=== PATIENT | female | born 1940 | race Caucasian/White ===

== ENCOUNTER 2021-09-22 09:18 | Inpatient (IN) ==
[2021-09-22 09:59] LABS: Basophils % 0.3 %; Eosinophils % 0.2 %; Hematocrit 39.4 % (35.3-44.9); Hemoglobin 12.6 g/dL (11.5-15.4); Immature Granulocytes % 0.5 % (0-4); Lymphocytes # 0.7 K/mcL (0.6-4.6); Lymphocytes % 6.3 %; Mean Corpuscular Hemoglobin 29.2 pg (28.0-33.3); Mean Corpuscular Volume 91.4 fL (83.0-100.0); Mean Platelet Volume 10.2 fL (9.4-12.4); Monocytes # 0.6 K/mcL (0.0-1.3); Monocytes % 5.3 %; Neutrophils # 10.1 K/mcL (1.6-8.9); Platelet Count 266 K/mcL (140-400); Red Blood Count 4.31 M/mcL (3.82-4.97); Red Cell Distribution Width 13.8 % (11.5-14.5); Segmented Neutrophils % 87.4 %; White Blood Count 11.6 K/mcL (4.3-11.1)
[2021-09-22 10:20] LABS: BUN/Creatinine Ratio 21 (6-26); Blood Urea Nitrogen 22 mg/dL (8-23); Calcium 9.3 mg/dL (8.6-10.3); Carbon Dioxide 21 mEq/L (23-29); Chloride 104 mEq/L (98-107); Glucose 148 mg/dL (70-105); Osmolality,Calculated 288 (280-300); Potassium 3.8 mEq/L (3.5-5.1); Sodium 136 mEq/L (136-145); eGFR For African Americans > 60 (> 60); eGFR For Non-African Americans 51 (> 60)
[2021-09-22 10:21] LABS: Troponin I 0.03 ng/mL (< 0.04)
[2021-09-22] MEDS ORDERED: *HR* Heparin 5,000 UNIT/ML VIAL IVP ONE (10:44)
[2021-09-22] MEDS ORDERED: *HR* Heparin 5,000 UNIT/ML VIAL IVP PRN ×2 (10:44)
[2021-09-22 10:45] LABS: INR 1.3; Prothrombin Time 14.5 Seconds (9.4-12.1)
[2021-09-22] MEDS ORDERED: levoFLOXacin 750 MG/150 ML 750 MG/150 ML BAG IVPB ONE (10:45)
[2021-09-22] MEDS ORDERED: Isovue-370 500 ML BOTTLE IVP ONE (11:01)
[2021-09-22] MEDS: DilTIAZem 50 MG/50 ML IV.SOLN IVC SCH ×3 (11:45→22:56)
[2021-09-22] MEDS: Heparin 25,000UNIT/250ML 1/2NS 25,000 UNIT/250 ML IV.SOLN IVC SCH (12:05)
[2021-09-22 12:58] LABS: Influenza A PCR Negative (Negative); Influenza B PCR Negative (Negative); Resp. Syncytial Virus PCR Negative (Negative)
[2021-09-22 12:59] LABS: SARS-CoV-2 by PCR (In House) Negative (Negative)
[2021-09-22] MEDS ORDERED: Ondansetron 4 MG/2 ML VIAL IVP PRN (15:19)
[2021-09-22] MEDS ORDERED: Mag Hydrox/Al Hydrox/Simeth 30 ML UDC PO PRN (15:19)
[2021-09-22] MEDS ORDERED: Naloxone 0.4 MG/ML INJ IVP PRN (15:19)
[2021-09-22] MEDS ORDERED: Acetaminophen 325 MG TABLET PO PRN (15:19)
[2021-09-22] MEDS ORDERED: Melatonin 3 MG TABLET PO PRN (15:19)
[2021-09-22] MEDS ORDERED: *HR* OxyCODONE Immed Rel 5 MG TABLET PO PRN (15:19)
[2021-09-22] MEDS ORDERED: Perflutren Lipid Microsphere 1.3 ML in 0.9 % Sodium Chloride 8.7 ML IVP PRN (15:21)
[2021-09-22] MEDS ORDERED: Furosemide 20 MG/2 ML VIAL IVP SCH (15:45)
[2021-09-22 15:53] LABS: Lactate Dehydrogenase 234 Units/L (140-271); Total Protein 7.1 g/dL (6.4-8.9)
[2021-09-22] MEDS ORDERED: Levalbuterol 1 PUFF INHALER IH PRN (21:47)
[2021-09-22] MEDS ORDERED: Levalbuterol Neb 1.25 MG/3 ML IH PRN (23:54)
[2021-09-23 04:04] LABS: Basophils # 0.1 K/mcL (0.0-0.2); Basophils % 0.4 %; Eosinophils % 0.1 %; Hematocrit 34.9 % (35.3-44.9); Hemoglobin 11.2 g/dL (11.5-15.4); Immature Granulocytes % 0.4 % (0-4); Lymphocytes # 0.9 K/mcL (0.6-4.6); Lymphocytes % 7.3 %; Mean Corpuscular HGB Conc 32.1 g/dL (31.6-35.5); Mean Corpuscular Hemoglobin 29.3 pg (28.0-33.3); Mean Corpuscular Volume 91.4 fL (83.0-100.0); Mean Platelet Volume 10.4 fL (9.4-12.4); Monocytes # 0.9 K/mcL (0.0-1.3); Monocytes % 7.3 %; Neutrophils # 10.9 K/mcL (1.6-8.9); Platelet Count 250 K/mcL (140-400); Red Blood Count 3.82 M/mcL (3.82-4.97); Red Cell Distribution Width 13.7 % (11.5-14.5); Segmented Neutrophils % 84.5 %; White Blood Count 12.9 K/mcL (4.3-11.1)
[2021-09-23 04:23] LABS: BUN/Creatinine Ratio 21 (6-26); Blood Urea Nitrogen 21 mg/dL (8-23); Calcium 9.2 mg/dL (8.6-10.3); Carbon Dioxide 21 mEq/L (23-29); Chloride 103 mEq/L (98-107); Glucose 106 mg/dL (70-105); Magnesium 1.8 mg/dL (1.6-2.6); Osmolality,Calculated 287 (280-300); Sodium 137 mEq/L (136-145); eGFR For African Americans > 60 (> 60); eGFR For Non-African Americans 52 (> 60)
[2021-09-23] MEDS ORDERED: Furosemide 20 MG/2 ML VIAL IVP SCH (09:00)
[2021-09-23] MEDS: levoFLOXacin 750 MG/150 ML 750 MG/150 ML BAG IVPB SCH (10:09)
[2021-09-23] MEDS: DilTIAZem 50 MG/50 ML IV.SOLN IVC SCH (10:48)
[2021-09-23 11:20] LABS: Adenovirus Not Detected (Not Detect); Bordetella Pertussis Not Detected (Not Detect); Chlamydophila pneumoniae Not Detected (Not Detect); Coronavirus 229E Not Detected (Not Detect); Coronavirus HKU1 Not Detected (Not Detect); Coronavirus NL63 Not Detected (Not Detect); Coronavirus OC43 Not Detected (Not Detect); Human Metapneumovirus Not Detected (Not Detect); Human Rhinovirus/Enterovirus Not Detected (Not Detect); Influenza A Subtype 2009 H1 Not Detected (Not Detect); Influenza B Not Detected (Not Detect); Mycoplasma pneumoniae Not Detected (Not Detect); Parainfluenza Virus 1 Not Detected (Not Detect); Parainfluenza Virus 2 Not Detected (Not Detect); Parainfluenza Virus 3 Not Detected (Not Detect); Parainfluenza Virus 4 Not Detected (Not Detect); Respiratory Syncytial Virus Not Detected (Not Detect); SARS-CoV-2 Not Detected (Not Detect)
[2021-09-23 15:42] LABS: RBC,Pleural Fluid < 2000 RBC/mcL
[2021-09-23 15:55] LABS: Glucose,Pleural Fluid 110 mg/dL (No Ref Range); LDH,Pleural Fluid 72 Units/L (No Ref Range); Total Protein,Pleural Fluid < 2.0 g/dL
[2021-09-23] MEDS: Aspirin Enteric Coated 81 MG Tablet PO SCH (17:28)
[2021-09-23] MEDS: Furosemide 20 MG/2 ML VIAL IVP SCH (17:29)
[2021-09-23 17:47] LABS: Appearance of Pleural Fl Clear (Clear)
[2021-09-23 17:50] LABS: Basophils,Pleural Fluid 0 %; Eosinophils,Pleural Fluid 0 %
[2021-09-23 17:53] LABS: Thyroid Stimulating Hormone 3.468 mcIU/mL (0.340-5.600)
[2021-09-24] MEDS: Heparin 25,000UNIT/250ML 1/2NS 25,000 UNIT/250 ML IV.SOLN IVC SCH ×3 (01:49→22:34)
[2021-09-24] MEDS: DilTIAZem 50 MG/50 ML IV.SOLN IVC SCH ×2 (07:20→14:07)
[2021-09-24] MEDS: amLODIPine 5 MG TABLET PO SCH (09:27)
[2021-09-24] MEDS: Furosemide 20 MG/2 ML VIAL IVP SCH ×2 (09:27→17:22)
[2021-09-24] MEDS: Aspirin Enteric Coated 81 MG Tablet PO SCH (09:27)
[2021-09-24 09:28] LABS: Basophils % 0.3 %; Eosinophils % 0.2 %; Hematocrit 38.3 % (35.3-44.9); Hemoglobin 12.2 g/dL (11.5-15.4); Immature Granulocytes % 0.3 % (0-4); Lymphocytes # 1.2 K/mcL (0.6-4.6); Lymphocytes % 9.1 %; Mean Corpuscular HGB Conc 31.9 g/dL (31.6-35.5); Mean Corpuscular Volume 91.2 fL (83.0-100.0); Monocytes # 1.1 K/mcL (0.0-1.3); Monocytes % 8.4 %; Neutrophils # 10.4 K/mcL (1.6-8.9); Platelet Count 275 K/mcL (140-400); Red Cell Distribution Width 13.5 % (11.5-14.5); Segmented Neutrophils % 81.7 %; White Blood Count 12.8 K/mcL (4.3-11.1)
[2021-09-24 09:36] LABS: INR 1.5
[2021-09-24] MEDS: MethylPREDNISolone 40 MG/ML VIAL IVP SCH ×2 (09:38→17:22)
[2021-09-24 09:48] LABS: Calcium 9.2 mg/dL (8.6-10.3); Potassium 3.5 mEq/L (3.5-5.1)
[2021-09-24] MEDS ORDERED: *HR* Warfarin 2.5 MG TABLET PO ONE (18:00)
[2021-09-24] MEDS ORDERED: Warfarin perPT PO PRN (18:00)
[2021-09-25] MEDS: MethylPREDNISolone 40 MG/ML VIAL IVP SCH ×2 (05:13→19:01)
[2021-09-25 05:48] LABS: Hematocrit 34.6 % (35.3-44.9); Hemoglobin 11.2 g/dL (11.5-15.4); Mean Corpuscular HGB Conc 32.4 g/dL (31.6-35.5); Mean Corpuscular Hemoglobin 28.9 pg (28.0-33.3); Mean Corpuscular Volume 89.2 fL (83.0-100.0); Mean Platelet Volume 10.3 fL (9.4-12.4); Platelet Count 246 K/mcL (140-400); Red Blood Count 3.88 M/mcL (3.82-4.97); Red Cell Distribution Width 13.4 % (11.5-14.5); White Blood Count 12.5 K/mcL (4.3-11.1)
[2021-09-25 05:53] LABS: INR 1.4; Prothrombin Time 15.9 Seconds (9.4-12.1)
[2021-09-25 06:09] LABS: Calcium 8.8 mg/dL (8.6-10.3); Potassium 3.5 mEq/L (3.5-5.1)
[2021-09-25] MEDS: Aspirin Enteric Coated 81 MG Tablet PO SCH (08:58)
[2021-09-25] MEDS: amLODIPine 5 MG TABLET PO SCH (08:58)
[2021-09-25] MEDS ORDERED: Perflutren Lipid Microsphere 1.3 ML in 0.9 % Sodium Chloride 8.7 ML IVP PRN (11:56)
[2021-09-25] MEDS ORDERED: *HR* Warfarin 3 MG TABLET PO ONE (18:00)
[2021-09-25] MEDS: levoFLOXacin 750 MG/150 ML 750 MG/150 ML BAG IVPB SCH (18:52)
[2021-09-25] MEDS: Furosemide 20 MG/2 ML VIAL IVP SCH ×2 (19:01→19:02)
[2021-09-25] MEDS: Metoprolol XL (24 HR) Succ 50 MG TAB.ER.24H PO SCH (20:09)
[2021-09-25] MEDS: Apixaban 5 MG TABLET PO SCH (20:10)
[2021-09-26 01:58] LABS: Hematocrit 34.4 % (35.3-44.9); Mean Corpuscular Hemoglobin 28.7 pg (28.0-33.3); Mean Corpuscular Volume 89.8 fL (83.0-100.0); Mean Platelet Volume 10.1 fL (9.4-12.4); Platelet Count 284 K/mcL (140-400); Red Blood Count 3.83 M/mcL (3.82-4.97); Red Cell Distribution Width 13.4 % (11.5-14.5); White Blood Count 18.4 K/mcL (4.3-11.1)
[2021-09-26 02:05] LABS: INR 1.3; Prothrombin Time 14.6 Seconds (9.4-12.1)
[2021-09-26 02:15] LABS: Calcium 8.7 mg/dL (8.6-10.3); Potassium 3.6 mEq/L (3.5-5.1)
[2021-09-26] MEDS: MethylPREDNISolone 40 MG/ML VIAL IVP SCH (05:09)
[2021-09-26 07:23] VITALS: BP 150/60; PULSE 87; TEMP 97.6; O2SAT 88
[2021-09-26] MEDS: Metoprolol XL (24 HR) Succ 50 MG TAB.ER.24H PO SCH (08:54)
[2021-09-26] MEDS: amLODIPine 5 MG TABLET PO SCH (08:55)
[2021-09-26] MEDS: Furosemide 20 MG/2 ML VIAL IVP SCH (08:55)
[2021-09-26] MEDS: Apixaban 5 MG TABLET PO SCH (08:58)
[2021-09-26] MEDS: Aspirin Enteric Coated 81 MG Tablet PO SCH (09:00)
[2021-09-26] MEDS ORDERED: FLU Vac QV 21-22 (6Month+)/PF 0.5 ML SYRINGE IM ONE (10:12)
[2021-09-28 10:39] LABS: Cholesterol,Body Fluid 10 mg/dL; Fluid Source for Cholesterol PLEURAL FLUID
== END 2021-09-26 10:45 | disposition home or self-care (01) | DRG 871 ==
LOC: SUATTDRO → EMEROOARM 09:18 → 3NENU 18:00
PROVIDERS: ADMIT Hospitalist; ATTEND Hospitalist